=== PATIENT | female | born 1985 | race Two or more races ===

== ENCOUNTER → 2018-12-03 | Outpatient (REF) | payer OTHER | LOC: M SFHCLERA 18:24 | PROVIDERS: ATTEND Physician Assistant | DX: J02.9 Acute pharyngitis, unspecified (principal) ==

== ENCOUNTER → 2019-03-26 | Outpatient (REF) | payer OTHER | LOC: M SFHCLERA 14:38 | PROVIDERS: ATTEND Nurse Practitioner Family | DX: J02.9 Acute pharyngitis, unspecified (principal) ==

== ENCOUNTER 2023-04-28 14:31 | Emergency (ER) | payer MEDICAID, OTHER ==
[~2023-04-28] VITALS: Ht 162.6 cm; Wt 81.9 kg
[2023-04-28 14:34] VITALS: BP 200/100; TEMP 98.8; O2SAT 100
== END 2023-04-28 17:40 | disposition left against medical advice (07) ==
LOC: M ED 14:31
DX: Z53.21 Procedure and treatment not carried out due to patient leaving prior to being seen by health care provider (principal)